=== PATIENT | male | born 1945 | race Caucasian/White ===

== ENCOUNTER 2022-03-17 13:13 | Observation (INO) | payer MEDICARE, OTHER ==
[2022-03-17] MEDS ORDERED: ACETAMINOPHEN 1000 MG/100 ML BAG IVPB ONE (15:18)
[2022-03-17] MEDS ORDERED: ACETAMINOPHEN INJECTION 100 ML IVPB ONE (15:29)
[2022-03-17 16:18] LABS: INR 1.08 (0.83-1.09); PROTHROMBIN TIME (PATIENT) 12.4 SEC (9.7-13.0)
[2022-03-17 16:36] LABS: BASO % 0.9 % (0-2.0); EOS % 7.5 % (0-4.5); HEMATOCRIT 41.6 % (35.4-49); HEMOGLOBIN 14.3 GM/dL (11.7-16.9); LYMPH % 22.1 % (8-40); MCH 28.8 pg (25.7-33.7); MCHC 34.4 g/dl (32.0-35.9); MEAN CELL VOLUME 83.6 fl (80-96); MEAN PLT VOLUME 8.3 fl (7.5-11.1); NEUT % 60.5 % (42.8-82.8); PLATELET COUNT 270 10^3/uL (134-434); RBC 4.97 M/mm3 (4.00-5.60); RDW 13.5 % (11.9-15.9); WHITE BLOOD COUNT 9.3 K/mm3 (4.0-10.0)
[2022-03-17 16:37] LABS: CALCIUM 9.6 mg/dL (8.5-10.1)
[2022-03-17 16:38] LABS: ALBUMIN 4.3 g/dl (3.4-5.0); BLOOD UREA NITROGEN 18.4 mg/dL (7-18)
[2022-03-17 16:41] LABS: CREATININE 0.8 mg/dL (0.55-1.3)
[2022-03-17 16:42] LABS: BILIRUBIN,TOTAL 1.3 mg/dL (0.2-1)
[2022-03-17 16:43] LABS: TOT PROT 7.4 g/dl (6.4-8.2)
[2022-03-17] MEDS ORDERED: LIDOCAINE 5% TOPICAL PATCH TP ONE (20:28)
[2022-03-17] MEDS ORDERED: KETOROLAC TROMETHAMINE 15 MG/ML VIAL IVPUSH ONE (20:28)
[2022-03-17] MEDS ORDERED: LIDOCAINE 5% TOPICAL PATCH ONE (20:28)
[2022-03-17] MEDS ORDERED: KETOROLAC TROMETHAMINE 15 MG/ML VIAL ONE (20:28)
[2022-03-17] MEDS ORDERED: ASPIRIN 81 MG CHEWABLE TABLETS PO ONE (20:32)
[2022-03-17] MEDS ORDERED: ASPIRIN 81 MG CHEWABLE TABLETS ONE (20:39)
[2022-03-17] MEDS ORDERED: ACETAMINOPHEN 325 MG TABLET (FP) PO PRN (22:43)
[2022-03-18 00:46] VITALS: BMI 28.0
[2022-03-18] MEDS ORDERED: ACETAMINOPHEN 325 MG TABLET (FP) ONE (01:10)
[2022-03-18 07:46] LABS: HEMATOCRIT 40.2 % (35.4-49); HEMOGLOBIN 13.9 GM/dL (11.7-16.9); MCH 28.8 pg (25.7-33.7); MCHC 34.5 g/dl (32.0-35.9); MEAN CELL VOLUME 83.4 fl (80-96); MEAN PLT VOLUME 8.8 fl (7.5-11.1); PLATELET COUNT 251 10^3/uL (134-434); RBC 4.82 M/mm3 (4.00-5.60); RDW 13.6 % (11.9-15.9); WHITE BLOOD COUNT 8.4 K/mm3 (4.0-10.0)
[2022-03-18 07:57] LABS: BLOOD UREA NITROGEN 28.7 mg/dL (7-18); CALCIUM 9.4 mg/dL (8.5-10.1)
[2022-03-18 07:58] LABS: MAGNESIUM 2.2 mg/dL (1.8-2.4); PHOSPHOROUS 3.6 mg/dL (2.5-4.9)
[2022-03-18 07:59] LABS: BILIRUBIN,TOTAL 0.9 mg/dL (0.2-1)
[2022-03-18 08:03] LABS: TOT PROT 6.9 g/dl (6.4-8.2)
[2022-03-18] MEDS ORDERED: LIDOCAINE PATCH REMOVAL MC SCH (09:00)
[2022-03-18] MEDS: ENOXAPARIN NA (PORCINE) 40 MG/0.4 ML DISP.SYRIN SQ SCH (15:44)
[2022-03-18] MEDS: CARVEDILOL 12.5 MG TABLET (FP) PO SCH ×2 (15:45→21:44)
[2022-03-18] MEDS: INSULIN SLIDING SCALE (NOVOLOG) 1 VIAL SQ SCH ×2 (17:35→21:44)
[2022-03-18] MEDS ORDERED: ATORVASTATIN CA 20 MG TABLET (FP) PO SCH (22:00)
[2022-03-19] MEDS: INSULIN SLIDING SCALE (NOVOLOG) 1 VIAL SQ SCH ×3 (06:20→15:59)
[2022-03-19 07:22] LABS: BASO % 0.8 % (0-2.0); EOS % 9.4 % (0-4.5); HEMOGLOBIN 13.9 GM/dL (11.7-16.9); LYMPH % 30.9 % (8-40); MCH 28.8 pg (25.7-33.7); MCHC 34.8 g/dl (32.0-35.9); MEAN CELL VOLUME 82.7 fl (80-96); MEAN PLT VOLUME 8.8 fl (7.5-11.1); MONO % 9.2 % (3.8-10.2); NEUT % 49.7 % (42.8-82.8); PLATELET COUNT 254 10^3/uL (134-434); RBC 4.84 M/mm3 (4.00-5.60); RDW 13.7 % (11.9-15.9); WHITE BLOOD COUNT 8.2 K/mm3 (4.0-10.0)
[2022-03-19 07:43] LABS: CALCIUM 9.1 mg/dL (8.5-10.1)
[2022-03-19 07:44] LABS: ALBUMIN 3.6 g/dl (3.4-5.0); BLOOD UREA NITROGEN 18.8 mg/dL (7-18); MAGNESIUM 2.2 mg/dL (1.8-2.4)
[2022-03-19 07:47] LABS: CREATININE 0.8 mg/dL (0.55-1.3)
[2022-03-19 07:48] LABS: BILIRUBIN,TOTAL 0.9 mg/dL (0.2-1); TOT PROT 6.6 g/dl (6.4-8.2)
[2022-03-19] MEDS ORDERED: REGADENOSON 0.4 MG/5 ML PRE-FILLED SYRINGE IVPUSH ONE ×2 (09:53→10:15)
[2022-03-19] MEDS: ENOXAPARIN NA (PORCINE) 40 MG/0.4 ML DISP.SYRIN SQ SCH (11:18)
[2022-03-19] MEDS ORDERED: CARVEDILOL 12.5 MG TABLET (FP) PO ONE (12:15)
[2022-03-19 16:52] VITALS: BP 144/65; PULSE 57; RESP 19; TEMP 98.2
== END 2022-03-19 17:17 | disposition home or self-care (01) ==
LOC: JER 13:13 → UNDOADMOB 18:22 → JERBED 18:22 → OBSVTOIN 20:48 → INTOOBSV 20:48 → J2W 03-18 03:44 → JERBED 03-18 03:44 → J2W 03-18 08:33
PROVIDERS: ADMIT Hospitalist; ATTEND Nurse Practitioner Acute Care
PROC: 3E033NZ Introduction of Analgesics, Hypnotics, Sedatives into Peripheral Vein, Percutaneous Approach (ICD-10-PCS; principal; 2022-03-18)
PROC: 3E0333Z Introduction of Anti-inflammatory into Peripheral Vein, Percutaneous Approach (ICD-10-PCS; 2022-03-18)
PROC: 3E033GC Introduction of Other Therapeutic Substance into Peripheral Vein, Percutaneous Approach (ICD-10-PCS; 2022-03-18)
PROC: 3E013VG Introduction of Insulin into Subcutaneous Tissue, Percutaneous Approach (ICD-10-PCS; 2022-03-18)
PROC: 3E013GC Introduction of Other Therapeutic Substance into Subcutaneous Tissue, Percutaneous Approach (ICD-10-PCS; 2022-03-18)
DX: R07.89 Other chest pain (principal); I10 Essential (primary) hypertension; E11.9 Type 2 diabetes mellitus without complications; E78.5 Hyperlipidemia, unspecified; I25.10 Atherosclerotic heart disease of native coronary artery without angina pectoris; R29.810 Facial weakness; Z29.8 Encounter for other specified prophylactic measures; Z95.1 Presence of aortocoronary bypass graft; Z95.5 Presence of coronary angioplasty implant and graft
CPT/HCPCS: 36415; 70450-TC; 70551-TC; 71046-TC-FY; 71111-TC-FY; 78452-TC; 80053; 80061; 82962; 83036; 83735; 84100; 84484; 85025; 85027; 85610; 85730; 93005; 93010; 93017; 93306-TC; 93880-TC; 96372; 96374; 96375; 97116-GP; 97161-GP; 99285-25; A9502; C9803-CS; G0378; J2785; U0003; U0005